=== PATIENT | male | born 1945 | race Caucasian/White ===

== ENCOUNTER 2016-11-20 10:32 | Inpatient (IN) | payer MEDICARE, OTHER ==
[~2016-11-20] VITALS: Ht 171.4 cm; Wt 91.6 kg
[~2016-11-20 10:32] MED LIST: ALEVE 220MG220 MG PO; ASPIRIN 32325 MG/TAB PO; CALCIUM 600MG+D1 TAB PO; CIALIS5 MG PO; DOXYCYCLINE 10100 MG PO; HCTZ 25MG TAB25 MG PO; MULTIPLE VITAMI1 CAP PO; NATURAL E400 IU PO; NORCO 325 MG-7.1 TAB PO; PRAVACHOL 20MG20 MG PO; PROSCAR 5MG5 MG PO; PROZAC 20MG20 MG PO; ROBAXIN 75750 MG/TAB PO; ROXICODONE 55 MG/TAB PO; TRANXENE7.5 MG PO; VITAMIN C500 MG PO; VITAMIN D1000 IU PO; ZESTRIL 10MG10 MG PO
[2017-07-26] VITALS (11 sets, daily range): BP systolic 109–142; BP diastolic 47–66; PULSE 70–108; TEMP 98–98.9
[2017-07-26] MEDS ORDERED: JANUVIA 100MG100 MG PO (05:56)
[2017-07-26 17:11] LABS: BASO % 0.2 % (0.0-2.0); GRAN # 11.2 (1.4-6.5); HEMATOCRIT 36.4 % (42.0-52.0); HEMOGLOBIN 11.7 g/dl (13.5-18.0); LYMPH # 0.6 (1.2-3.4); MEAN CELL VOLUME 98 fl (80.0-100.0); MEAN CORPUSCULAR HEMOGLOBIN 31 pg (27.0-31.0); MEAN CORPUSCULAR HGB CONC 32 g/dl (33.0-37.0); MONO # 0.7 (0.1-0.6); MONO % 5.5 % (1.7-9.3); PLATELET COUNT 205 K/mm3 (130-400); RED BLOOD COUNT 3.72 M/mm3 (4.20-5.60); WHITE BLOOD COUNT 12.5 K/mm3 (4.8-10.8)
[2017-07-26 17:19] LABS: ADJUSTED CALCIUM 8.3 mg/dL (8.4-10.2); ALBUMIN 3.7 gm/dL (3.5-5.0); BILIRUBIN,TOTAL 0.6 mg/dL (0.0-1.0); CALCIUM 8.1 mg/dL (8.4-10.2); CREATININE, serum 1.58 mg/dL (0.66-1.25); TOTAL PROTEIN 6.6 gm/dL (6.4-8.2)
[2017-07-26 17:42] LABS: MUCOUS Present /lpf; PH 5 (5-8); SQUAMOUS EPITHELIAL 0-2 /hpf; URINE APPEARANCE Clear; URINE BACTERIA None Seen /hpf; URINE BILIRUBIN Negative (NEGATIVE); URINE BLOOD 2+ (NEGATIVE); URINE COLOR Yellow; URINE GLUCOSE Negative (NEGATIVE); URINE KETONE Negative (NEGATIVE); URINE LEUKOCYTE ESTERASE Negative (NEGATIVE); URINE PROTEIN(semi-quant) 1+ (NEGATIVE); URINE WBC 0-2 /hpf
[2017-07-26 17:44] LABS: COLLECTION METHOD CLEAN CATCH
[2017-07-27 05:07] VITALS: BP 114/61; PULSE 84; TEMP 98.2
[2017-07-27 08:04] VITALS: BP 128/59; PULSE 78; TEMP 98.2
[2017-07-27 08:05] LABS: HEMATOCRIT 29.8 % (42.0-52.0); HEMOGLOBIN 9.9 g/dl (13.5-18.0)
[2017-07-27] MEDS ORDERED: ASPI325T6 PO (10:48)
[2017-07-27] MEDS ORDERED: SENOKOT S 50 MG1 TAB PO (10:49)
[2017-07-27] MEDS ORDERED: TYLENOL 500MG500 MG PO (10:49)
[2017-07-27] MEDS ORDERED: MILK OF MA400 MG/52 PO (10:50)
[2017-07-27] MEDS ORDERED: ROXICODONE 55 MG/TAB PO (10:51)
[2017-07-27] MEDS ORDERED: NORCO 325 MG-7.1 TAB PO (10:52)
[2017-07-27 12:18] VITALS: BP 108/48; PULSE 85; TEMP 98.5
== END 2017-07-27 13:05 | disposition home or self-care (01) | DRG 483 ==
LOC: JCC 01-25 07:30 → INPTSU 07-26 05:17 → JCC 07-26 05:17
PROVIDERS: Orthopaedic Surgery; Physician Assistant
PROC: 0RRJ00Z Replacement of Right Shoulder Joint with Reverse Ball and Socket Synthetic Substitute, Open Approach (ICD-10-PCS; principal; 2017-07-26 10:05)
DX: M19.011 Primary osteoarthritis, right shoulder (principal); E87.1 Hypo-osmolality and hyponatremia; I10 Essential (primary) hypertension; E11.65 Type 2 diabetes mellitus with hyperglycemia; Z87.891 Personal history of nicotine dependence
CPT/HCPCS: 99222; 99231-AI; A4315; A9284; C1713; C1776; J0330; J0690; J1170; J1885; J2405; J2704; J2710; J3010; J3370; J7030

== ENCOUNTER → 2017-07-09 | Outpatient (CLI) | payer MEDICARE, OTHER ==
[2017-07-09 12:21] LABS: HIV 1/2 Antibodies Non-Reactive; HIV-1p24 Antigen Non-Reactive
== END ==
LOC: COL.LAB 11:28
PROVIDERS: Orthopaedic Surgery
DX: Z01.812 Encounter for preprocedural laboratory examination (principal)

== ENCOUNTER → 2019-03-04 | Outpatient (CLI) | payer MEDICARE, OTHER ==
[~2019-03-04] MED LIST changes: +ASPI325T6 PO; +JANUVIA 100MG100 MG PO; +MILK OF MA400 MG/52 PO; +SENOKOT S 50 MG1 TAB PO; +TYLENOL 500MG500 MG PO
== END ==
LOC: COL.RAD 02-28 14:00
DX: M19.012 Primary osteoarthritis, left shoulder (principal)
CPT/HCPCS: J3301; Q9967

== ENCOUNTER → 2019-07-31 | Outpatient (CLI) | payer MEDICARE, OTHER | LOC: COL.RAD 12:16 | DX: M25.512 Pain in left shoulder (principal) | CPT/HCPCS: J3301; Q9967 ==

== ENCOUNTER 2022-05-23 06:56 | Inpatient (IN) | payer MEDICARE, OTHER ==
[~2022-05-23] VITALS: Ht 170.2 cm; Wt 87.1 kg
[2022-05-23] VITALS (12 sets, daily range): BP systolic 121–155; BP diastolic 62–89; PULSE 61–95; TEMP 97.3–98.8
[2022-05-23] MEDS ORDERED: EFFEXOR-XR150 MG PO (08:13)
[2022-05-23] MEDS ORDERED: CRESTOR40 MG PO (08:14)
[2022-05-23] MEDS ORDERED: BYDUREON B2 MG/0.85 SQ (08:16)
[2022-05-23] MEDS ORDERED: CIALIS5 MG PO (08:18)
--- NOTE | 2022-05-23 08:20 | NUR ---
Bilateral thigh high QUEENIE hose applied, pre-surgery medications given, chlorhexidine scrub done to left shoulder.
--- NOTE | 2022-05-23 09:00 | NUR ---
Glasses placed in soft case and put in top zipper of black suitcase. Black suitcase and patient's belonging bag labeled and brought to PACU.
--- NOTE | 2022-05-23 20:00 | NUR ---
PT ASSISTED TO BATHROOM, HAS STEADY GAIT. VOIDS AND BACK TO BED. HAS LEFT ARM IN SLING WITH ADUCTOR PILLOW IN PLACE. BULKY DRSG INTACT WITH ICE PACK PRESENT. PT REPORTS NUMBNESS TO LEFT THUMB AND LEFT INDEX FINGER, FINGERS WITH GOOD MOVEMENT, WARMTH AND PULSE. REPOSITIONED ARM IN SLING. IS ALERT AND ORIENTED X4. HAS IVF TO RT HAND INFUSING WITHOUT PROBLEM.
--- NOTE | 2022-05-23 23:30 | NUR ---
PT TAKING FLUIDS WELL, IVF CAPPED. MEDICATED WITH OXYCODONE 5MG PO FOR LEFT SHOULDER PAIN. REPORTS LT INDEX FINGER NO LONGER NUMB, LT THUMB IS NUMB.
[2022-05-24 03:21] VITALS: BP 138/66; BP 141/79; PULSE 69; PULSE 79; TEMP 97.7; TEMP 98
--- NOTE | 2022-05-24 03:29 | NUR ---
PT AWAKE, ASKING FOR PAIN MEDS. MEDICATED WITH SCHEDULED ES TYLENOL AND OXYCODONE 5MG PO AT THIS TIME.
--- NOTE | 2022-05-24 06:01 | NUR ---
[id number] THIS AM, NO INSULIN REQUIRED.
[2022-05-24 06:05] LABS: HEMOGLOBIN 11.9 g/dl (13.5-18.0)
[2022-05-24 06:19] LABS: HEMATOCRIT 35.1 % (42.0-52.0)
--- NOTE | 2022-05-24 07:26 | NUR ---
PT HAS NO NEEDS AT THIS TIME
[2022-05-24 07:47] VITALS: BP 149/72; PULSE 76; TEMP 98.2
--- NOTE | 2022-05-24 09:13 | NUR ---
[employer] met with patient to discuss discharge planning. Patient lives in [place] and sees Dr. Burroughs for primary care. Patient obtains medications mostly by mail, but stated he plans to use [facility] for any discharge medications as his daughter, Meme (ph#[phone]) is the document control manager of that pharmacy. Patient does not use any DME and is normally independent with [facility]. Patient advised he believes he has DPOA-HC that designates his daughters, Meme and Evangelina. Patient plans to return home at time of discharge. Discharge Plan: Home
[2022-05-24] MEDS ORDERED: ROXICODONE 55 MG/TAB PO (11:52)
[2022-05-24] MEDS ORDERED: SENOKOT S 50 MG1 TAB PO (11:52)
[2022-05-24] MEDS ORDERED: ASPI325T6 PO (11:54)
[2022-05-24 12:24] VITALS: BP 148/82; PULSE 83; TEMP 98.2
== END 2022-05-24 15:38 | disposition home or self-care (01) | DRG 483 ==
LOC: SDCO 06:56 → SURG 15:06 → SDCO 15:07 → SURG 15:07
PROVIDERS: ADMIT Orthopaedic Surgery
PROC: 0RRK00Z Replacement of Left Shoulder Joint with Reverse Ball and Socket Synthetic Substitute, Open Approach (ICD-10-PCS; principal; 2022-05-23 10:15)
DX: M19.012 Primary osteoarthritis, left shoulder (principal); I10 Essential (primary) hypertension; E78.5 Hyperlipidemia, unspecified; G47.33 Obstructive sleep apnea (adult) (pediatric); F32.A Depression, unspecified; F41.9 Anxiety disorder, unspecified; I65.29 Occlusion and stenosis of unspecified carotid artery; E11.9 Type 2 diabetes mellitus without complications; N40.0 Benign prostatic hyperplasia without lower urinary tract symptoms; Z85.46 Personal history of malignant neoplasm of prostate; Z99.81 Dependence on supplemental oxygen; Z23 Encounter for immunization
CPT/HCPCS: OP; A4314; A4619; A9284; C1713; C1776; J0690; J1100; J1815; J2250; J2405; J2704; J2795; J3010; J7030

== ENCOUNTER 2024-03-31 10:53 | Day surgery (SDC) | payer MEDICARE, OTHER ==
[~2024-03-31] VITALS: Ht 170.3 cm; Wt 79.3 kg
[2024-03-31] VITALS (9 sets, daily range): BP systolic 137–180; BP diastolic 88–99; PULSE 62–79; TEMP 97.7
[~2024-03-31 10:53] MED LIST changes: +ATIVAN 1MG T1 MG/TAB PO; +BYDUREON B2 MG/0.85 SQ; +CRESTOR40 MG PO; +EFFEXOR-XR150 MG PO; +FLONASEALLERGY NS; +GLUCOTROL 5M5 MG/TAB PO; +PACERONE400 MG PO; +VESICARE10 MG PO; +XARELTO20 MG PO; +XTANDI80 MG PO
[2024-03-31] MEDS ORDERED: 1/2 NS 1,000 ML IV SCH (11:15)
[2024-03-31 12:05] LABS: HEMOGLOBIN 12.5 g/dl (13.5-18.0); MEAN CELL VOLUME 96 fl (80.0-100.0); MEAN CORPUSCULAR HEMOGLOBIN 33 pg (27-31); MEAN CORPUSCULAR HGB CONC 35 g/dl (33.0-37.0); MEAN PLATELET VOLUME 9.5 fl (7.4-10.4); PLATELET COUNT 220 K/mm3 (130-400); RED BLOOD COUNT 3.76 M/mm3 (4.20-5.60); REDCELL DISTRIBUTION WIDTH-CV 13.5 % (11.5-14.5)
[2024-03-31] MEDS ORDERED: MULTAQ400 MG PO (12:06)
[2024-03-31 12:07] LABS: HEMATOCRIT 35.9 % (42.0-52.0)
[2024-03-31] MEDS ORDERED: ATIVAN 1MG T1 MG/TAB PO (12:07)
[2024-03-31 12:12] LABS: INR 1.1 (0.8-3.0); PROTHROMBIN TIME 11.8 SECONDS (9.7-12.8)
[2024-03-31 12:15] LABS: PARTIAL THROMBOPLASTIN TIME 33.6 SECONDS (26.0-37.0)
[2024-03-31 12:22] LABS: CALCIUM 9.9 mg/dL (8.4-10.2); CREATININE, serum 1.23 mg/dL (0.72-1.25); POTASSIUM 3.9 mEq/L (3.5-4.5)
[2024-03-31] MEDS ORDERED: Nitroglycerin 2% Topical Oint 1 GM UD TD SCH (12:24)
[2024-03-31] MEDS ORDERED: OZEMPIC2 MG/0.75 SQ (12:27)
[2024-03-31] MEDS ORDERED: BRINTELLIX5 PO (12:28)
[2024-03-31] MEDS ORDERED: L-METHYLFOLATE7.5 MG PO (12:31)
[2024-03-31] MEDS ORDERED: TIROSINT50 MC1 PO (12:31)
--- NOTE | 2024-03-31 13:05 | NUR ---
See merge for all medication, assessment,intervention, and vital signtimes.
[2024-03-31] MEDS ORDERED: fentaNYL 50 MCG/ML 2 ML VIAL IV SCH (13:29)
[2024-03-31] MEDS ORDERED: Midazolam 2 MG/2 ML VIAL IV SCH ×2 (13:29→16:00)
[2024-03-31] MEDS ORDERED: Heparin 1,000 UNITS/ML 10 ML Multi-Dose VIAL IV SCH (13:30)
[2024-03-31] MEDS ORDERED: niCARdipine (Cath Lab) 100 MCG/ML 10 ML VIAL INCOR SCH (13:35)
[2024-03-31] MEDS ORDERED: Iohexol 350 - 100 ML VIAL INCOR ONE (13:35)
--- NOTE | 2024-03-31 13:56 | NUR ---
Bedside report completed with Noemy HERNANDEZ. Call light within reach, first set of vitals reviewed, site intact, fluids at 100 ml/hr. Noemy Hernandez denies questions/concerns at this time.
--- NOTE | 2024-03-31 14:00 | NUR ---
pt returned to eu 10 via bed from [employer], awake and alert, no c/o pain, radial band on, site without swelling or bleeding, daughters in room, pt takes water, is scheduled for loop insertion this afternoon, reviewed procedure and consent signed. with daughter as witness also, pt remains alert, hob elevated
--- NOTE | 2024-03-31 14:45 | NUR ---
pt con't bedrest, has no c/o
--- NOTE | 2024-03-31 16:00 | NUR ---
DR RENTERIA IN ROOM WITH [employer]ICER TEAM, 1MG VERSED IV GIVEN BY KELLI DRAPER PER DR RENTERIA, PT REMAINS AWAKE AND TALKS DURING INSERTION, VSS. DRESSING OVER LOOP SITE IS CLEAN AND DRY, TECH TEACHES PT AND HELPS HIM WITH PHONE FOR LOOP RECORDER INFORMATION WITH VERBAL UNDERSTANDING. 2CC OF AIR REALEASED FROM BAND AT 1615, WITH NO SWELLING OR BLEEDING NOTED, TRAY ORDERED FOR PT AND SITS UP IN BED AND EATS MEAL
--- NOTE | 2024-03-31 16:40 | NUR ---
BAND RELEASED AFTER 2CC REMOVED AT A TIME OVER 15 MIN. PT SITS ON SIDE OF BED, DAUGHTER HERE TO HEAR DISCHARGE INST. FOR PT. REVIEWED MODERATE SEDATION PRECAUTIONS, ALSO REVIEWED LOOP INST. WITH SIGNS OF INFECTION, PT WILL CALL DR STEELE PCP FOR 1 WEEK APPT TO CHECK SITE, ALSO NO NEW MEDS AND FOLLOWUP WITH CARDIOLOGY MADE, REVIEWED RESTRICTIONS TO RIGHT WRIST WITH VERBAL UNDERSTANDING. IV D'CD INTACT. PT DRESSED SELF AND DISCHARGED VIA W/C TO CAR WITH DAUGHTER AT 1705
== END 2024-03-31 17:05 | disposition home or self-care (01) ==
LOC: COL.CAR 10:53
PROVIDERS: Internal Medicine Cardiovascular Disease
DX: R42 Dizziness and giddiness (principal); R55 Syncope and collapse; R53.83 Other fatigue; Q24.5 Malformation of coronary vessels
CPT/HCPCS: C1764; C1769; J1644; J2250; J2404; J3010; Q9967